=== PATIENT | female | born 1970 | race Asian ===

== ENCOUNTER 2020-07-11 23:18 | Emergency (ER) | payer SELFPAY ==
[~2020-07-11] VITALS: Ht 152.4 cm; Wt 43.5 kg
[2020-07-11 23:28] VITALS: BP 155/102
--- NOTE | 2020-07-11 23:28 | NUR ---
TO BED AMBULATORY
--- NOTE | 2020-07-12 | NUR ---
PATIENT 49 Y.O. BIB SELF FOR C/O "FEELING DIZZY AND TENSE, I THINK ITS MY HIGH BLOOD PRESSURE". A&0 X4. PATIENT DENIES HX OF HIGH BLOOD PRESSURE. PATIENT STATED "I WAS DRIVING BY AND THOUGHT I WOULD STOP BY AND CHECK." PUPILS BRISK AND PERRLA. PULSES STRONG AND EQUAL. SKIN IS WARM, DRY AND INTACT. PATIENT DENIES CP, COUGH, FEVER, CHILLS, SOB. MEDICAL HX: DENIES ALLERGIES: NKA
[2020-07-12 00:28] VITALS: BP 117/82
--- NOTE | 2020-07-12 00:28 | NUR ---
Patient discharged with v/s stable. Written and verbal after care instructions given and explained. Patient verbalized understanding. Ambulatory with steady gait. All questions addressed prior to discharge. Advised to follow up with PMD.
== END 2020-07-12 00:28 | disposition home or self-care (01) ==
LOC: MED 23:18
DX: I10 Essential (primary) hypertension (principal); R42 Dizziness and giddiness
CPT/HCPCS: 99281